=== PATIENT | female | born 1960 | race Caucasian/White ===

== ENCOUNTER 2024-10-14 10:35 | Outpatient (CLI) | payer OTHER, SELFPAY | END 2024-10-14 10:36 | disposition home or self-care (01) | PROVIDERS: PCP Family Medicine; Visit Provider Family Medicine | DX: E03.9 Hypothyroidism, unspecified (principal); I10 Essential (primary) hypertension; G47.00 Insomnia, unspecified | CPT/HCPCS: 80048; 80061; 84443 ==

== ENCOUNTER 2025-03-30 13:39 | Outpatient (CLI) | payer OTHER, SELFPAY ==
--- NOTE | 2025-03-30 13:40 | CRLHL7_ITS ---
For Patients: As a result of the Century Cures Act, medical imaging exams and procedure reports are released immediately into your electronic medical record. You may view this report before your referring provider. If you have questions, please contact your health care provider. INDICATION: BILATERAL SCREENING MAMMOGRAM W/IMPLANTS, ASYMPTOMATIC 64 Y/O FEMALE COMPARISON: 12/18/2023 TECHNIQUE: Digital mammogram in CC and MLO projections including computer-aided detection (CAD) and tomosynthesis. BREAST COMPOSITION: The breasts are almost entirely fatty. FINDINGS: No suspicious findings. ASSESSMENT: BI-RADS 2 Benign RECOMMENDATION: Annual screening mammogram. A lay language report of this examination will be provided to the patient. Dictated by: Monster Garcia MD @ 04/07/2025 12:17:28 (Electronically Signed)
== END 2025-03-30 13:40 | disposition home or self-care (01) ==
LOC: MAMMO 13:40
PROVIDERS: PCP Family Medicine; Visit Provider Family Medicine
DX: Z12.31 Encounter for screening mammogram for malignant neoplasm of breast (principal); Z98.82 Breast implant status
CPT/HCPCS: 77063; 77067

== ENCOUNTER 2025-06-16 11:08 | Outpatient (CLI) | payer OTHER, SELFPAY | END 2025-06-16 11:09 | disposition home or self-care (01) | LOC: FBOREF 11:09 | PROVIDERS: PCP Family Medicine; Visit Provider Family Medicine | DX: E03.9 Hypothyroidism, unspecified (principal) | CPT/HCPCS: 84443 ==

== ENCOUNTER 2025-07-24 09:43 | Outpatient (CLI) | payer OTHER, SELFPAY ==
--- NOTE | 2025-07-24 11:00 | CRLHL7_ITS ---
For Patients: As a result of the Century Cures Act, medical imaging exams and procedure reports are released immediately into your electronic medical record. You may view this report before your referring provider. If you have questions, please contact your health care provider. INDICATION: Cervical spine fracture. TECHNIQUE: Noncontrast axial CT of the cervical spine with coronal/sagittal 3D reformats are provided and compared to prior CT and MRI from June 12, 2025. FINDINGS: Since the prior study, there has been interval development of a wedge-shaped fracture fragment with mild ventral displacement of approximately 2-3 mm. The prior noted prevertebral soft tissue thickening appears somewhat improved. Chronic irregularity is again demonstrated involving the anterior inferior C7 vertebral body. Remainder of the cervical spine demonstrates normal overall stature, alignment. C2-3: Unremarkable. C3-4: Asymmetric uncovertebral joints arthropathy results in stable moderate to severe left and no right foraminal narrowing. No central canal narrowing. C4-5: Disc osteophyte complex results in mild central canal narrowing. Moderate to severe right and mild to moderate left foraminal narrowing. C5-6: Asymmetric uncovertebral joint arthropathy is worse on the left results in moderate left and mild to moderate right foraminal narrowing. Central canal is patent. C6-7: No central canal or foraminal narrowing. C7-T1: Moderate right-sided facet arthropathy results in no significant central canal or left foraminal narrowing. Mild right foraminal narrowing. IMPRESSION: 1. Interval fracture of the anterior inferior C2 vertebral body with mild ventral displacement of fracture fragment. 2. Mild interval improvement prevertebral soft tissue thickening of the cervical spine. 3. Essentially stable multilevel degenerative changes of the cervical spine as outlined above. Please note that all CT scans at this facility use dose modulation, iterative reconstruction, and/or weight-based dosing when appropriate to reduce radiation dose to as low as reasonably achievable. Dictated by Nate Washington MD @ 07/25/2025 10:03:18 AM (Electronically Signed)
== END 2025-07-24 09:44 | disposition home or self-care (01) ==
PROVIDERS: PCP Family Medicine; Visit Provider Family Medicine
DX: R55 Syncope and collapse (principal); I35.1 Nonrheumatic aortic (valve) insufficiency; S12.9XXA Fracture of neck, unspecified, initial encounter; S12.101A Unspecified nondisplaced fracture of second cervical vertebra, initial encounter for closed fracture
CPT/HCPCS: 72125; 93306

== ENCOUNTER 2025-08-13 12:59 | Outpatient (CLI) | payer OTHER, SELFPAY ==
--- NOTE | 2025-08-13 13:30 | CRLHL7_ITS ---
For Patients: As a result of the Century Cures Act, medical imaging exams and procedure reports are released immediately into your electronic medical record. You may view this report before your referring provider. If you have questions, please contact your health care provider. DXA BONE MINERAL DENSITY STUDY Reason for exam: Asymptomatic menopausal state. Recent C2 fracture after fall. Current height (in): 68. Weight (lb): 161. Menopause age: 41. Ethnicity: White. 1. Have you had a previous hip or vertebral fracture? Yes. 2. Have you had any fractures during your adult life which did not result from significant trauma (e.g., auto accident)? Yes. 3. Did either of your parents have a hip fracture? No. 4. Do you smoke? No. 5. Have you ever taken Glucocorticoids? No. 6. Do you have rheumatoid arthritis? No. 7. Do you have secondary osteoporosis? No. 8. Do you drink 3 or more alcoholic drinks per day? No. 9. Are you being treated for osteoporosis? No. 10. Have you ever taken any of the following medications: Actonel, Evista, Fosamax, Miacalcin, Reclast, Boniva, Forteo, HRT (i.e. estrogen/hormone therapy), Protelos, Prolia, Vitamin D, Calcium, other ??? please specify. ANSWER: Yes, vitamin D and calcium. 11. Do you have any of the following medical conditions: Anorexia or bulimia, asthma or emphysema, end stage renal disease, hyperparathyroidism, any seizure disorders, cancer, inflammatory bowel diseases, hysterectomy, other ??? please specify. ANSWER: Yes, cancer and hysterectomy. 12. What was your maximum height (inches)? 69. 13. Do you perform weight bearing exercise regularly? No. 14. Do you regularly consume dairy products? Yes. 15. Do you drink caffeinated beverages? Yes. 16. At what age did your period start? 13. 17. Are you premenopausal? No. 18. How many full-term pregnancies have you had? 2. 19. Have you ever missed your period for more than 6 months in a row (not including or menopause)? No. TECHNIQUE: Bone mineral density study was performed using the [employer]. FINDINGS: The results of the study expressed as bone mineral density (BMD) are as follows: Lumbar spine L1 to L4: BMD: 1.121 g/cm2. T-score: 0.7. Z-score: 2.4. Neck Left: BMD: 0.779 g/cm2. T-score: -0.6. Z-score: 0.8. Right: BMD: 0.796 g/cm2. T-score: -0.5. Z-score: 1.0. Total Left: BMD: 0.930 g/cm2. T-score: -0.1. Z-score: 1.1. Right: BMD: 0.929 g/cm2. T-score: -0.1. Z-score: 1.1. IMPRESSION: Normal bone density. *Comparison exams done prior to 03/2020 were performed on different unit, [facility]. Monster Garcia M.D. Diagnostic Radiologist [email or web address]/Dictated by: Monster Garcia MD @ 08/17/2025 9:49:00 AM (Electronically Signed)
== END 2025-08-13 13:00 | disposition home or self-care (01) ==
LOC: RAD 12:59
PROVIDERS: PCP Family Medicine; Visit Provider Family Medicine
DX: Z78.0 Asymptomatic menopausal state (principal); S12.9XXA Fracture of neck, unspecified, initial encounter
CPT/HCPCS: 77080

== ENCOUNTER 2025-09-02 10:48 | Outpatient (CLI) | payer OTHER, SELFPAY ==
--- NOTE | 2025-09-02 11:00 | CRLHL7_ITS ---
For Patients: As a result of the Century Cures Act, medical imaging exams and procedure reports are released immediately into your electronic medical record. You may view this report before your referring provider. If you have questions, please contact your health care provider. Indication: C2 fracture, follow-up. Technique: Noncontrast CT of the cervical spine with multiplanar reconstruction utilizing bone and soft tissue algorithms. Comparison: CT cervical spine dated 07/24/2025. Findings: Stable chronic mildly displaced fracture involving the anterior C2 vertebral body with extension through the endplate. Stable additional chronic fracture along the anterior margin of the C7 vertebral body (series 7, image 21). Congenital nonunion of the C1 posterior arch. Similar minimal grade 1 anterolisthesis at C4-C5, C5-C6, C6-C7, and C7-T1. Unremarkable prevertebral soft tissues. C2-C3: Mild facet joint arthrosis. No significant spinal canal or neural foraminal stenosis. C3-C4: No significant spinal canal stenosis or right neural foraminal narrowing. Similar moderate left neural foraminal narrowing associated with uncovertebral and facet joint arthrosis. C4-C5: No significant spinal canal stenosis. Similar moderate-severe right and moderate left neural foraminal narrowing associated with uncovertebral and facet arthrosis. C5-C6: No significant spinal canal stenosis. Similar moderate right and mild-moderate left neural foraminal narrowing associated with uncovertebral and facet joint arthrosis. C6-C7: No significant spinal canal or neural foraminal stenosis. C7-T1: Moderate right facet arthrosis. No significant spinal canal stenosis or left neural foramen narrowing. Similar mild right neural foraminal narrowing. Impression: 1. Stable chronic mildly displaced fracture involving the anterior C2 vertebral body with unchanged appearance of the fracture clefts. 2. Stable additional chronic fracture along the anterior margin of the C7 vertebral body. 3. Similar advanced cervical spondylosis and multilevel neural foraminal stenoses as above. Please note that all CT scans at this facility use dose modulation, iterative reconstruction, and/or weight-based dosing when appropriate to reduce radiation dose to as low as reasonably achievable. Dictated by Raymond Buckley MD @ 09/02/2025 12:04:27 PM (Electronically Signed)
== END 2025-09-02 10:49 | disposition home or self-care (01) ==
LOC: CT 10:48
PROVIDERS: Absent Provider Neurological Surgery; PCP Family Medicine; Visit Provider Family Medicine
DX: S12.9XXA Fracture of neck, unspecified, initial encounter (principal); S12.100S Unspecified displaced fracture of second cervical vertebra, sequela; S12.600S Unspecified displaced fracture of seventh cervical vertebra, sequela
CPT/HCPCS: 72125

== ENCOUNTER 2025-09-18 09:47 | Outpatient (CLI) | payer OTHER, SELFPAY | END 2025-09-18 09:48 | disposition home or self-care (01) | PROVIDERS: PCP Family Medicine; Visit Provider Family Medicine | DX: I10 Essential (primary) hypertension (principal); E03.9 Hypothyroidism, unspecified | CPT/HCPCS: 80048; 80061; 84439; 84443 ==

== ENCOUNTER 2025-09-29 11:14 | Outpatient (CLI) | payer OTHER, SELFPAY ==
--- NOTE | 2025-09-29 11:30 | CRLHL7_ITS ---
For Patients: As a result of the Cures Act, medical imaging exams and procedure reports are released immediately into your electronic medical record. You may view this report before your referring provider. If you have questions, please contact your health care provider. Indication: Follow-up fracture Technique: Noncontrast CT cervical spine Please note that all CT scans at this facility use dose modulation, iterative reconstruction, and/or weight-based dosing when appropriate to reduce radiation dose to as low as reasonably achievable. Comparison: 07/24/2025, 09/02/2025 Findings: There has been mild progressive healing callus formation about the mildly displaced fracture involving the anterior inferior C2 vertebral body with stable alignment. No significant interval change in the fracture deformity involving C7. No new fracture. Chronic appearance of the posterior C1 arch. Degenerative disc disease C5-6 and C6-7. Multilevel facet degeneration. Vascular calcifications. No adenopathy. Impression: Mild progressive healing of the C2 fracture although the fracture margins persist. Stable alignment. No change in the chronic C7 fracture. Stable appearance of the posterior C1 arch. Please note that all CT scans at this facility use dose modulation, iterative reconstruction, and/or weight-based dosing when appropriate to reduce radiation dose to as low as reasonably achievable. Dictated by Monster Garcia MD @ 09/30/2025 9:21:00 AM (Electronically Signed)
== END 2025-09-29 11:15 | disposition home or self-care (01) ==
PROVIDERS: PCP Family Medicine; Visit Provider Family Medicine
DX: S12.9XXA Fracture of neck, unspecified, initial encounter (principal)
CPT/HCPCS: 72125